=== PATIENT | female | born 1985 | race Caucasian/White ===

== ENCOUNTER 2021-05-09 11:00 | Emergency (ER) | payer OTHER ==
[~2021-05-09] VITALS: Ht 170.2 cm; Wt 54.4 kg
[2021-05-09] MEDS ORDERED: NULEV0.125 MG (11:08)
[2021-05-09] MEDS ORDERED: KETO10TA2 PO (16:06)
== END 2021-05-09 16:27 | disposition left against medical advice (07) ==
LOC: ER 11:00
DX: N83.291 Other ovarian cyst, right side (principal); R10.2 Pelvic and perineal pain

== ENCOUNTER 2021-05-15 11:56 | Emergency (ER) | payer OTHER ==
[~2021-05-15] VITALS: Ht 170.2 cm; Wt 54.4 kg
[~2021-05-15 11:56] MED LIST: KETO10TA2 PO; NULEV0.125 MG
== END 2021-05-15 17:56 | disposition home or self-care (01) ==
LOC: ER 11:56
DX: R10.9 Unspecified abdominal pain (principal); R10.2 Pelvic and perineal pain; N83.209 Unspecified ovarian cyst, unspecified side
CPT/HCPCS: 74177; Q9965

== ENCOUNTER 2021-05-22 13:05 | Emergency (ER) | payer OTHER ==
[~2021-05-22] VITALS: Ht 170.2 cm; Wt 54.4 kg
[2021-05-22] MEDS ORDERED: URIN D.S. TABL1 EACH PO (15:02)
[2021-05-22] MEDS ORDERED: PYRIDIUM DS200 MG PO (15:02)
[2021-05-22] MEDS ORDERED: SKELAGESIC PO (15:02)
[2021-05-22] MEDS ORDERED: UTIX PO (15:02)
== END 2021-05-22 15:44 ==
LOC: ER 13:05
DX: N30.10 Interstitial cystitis (chronic) without hematuria (principal)

== ENCOUNTER 2021-06-20 12:30 | Emergency (ER) | payer OTHER ==
[~2021-06-20] VITALS: Ht 170.2 cm; Wt 54.4 kg
[~2021-06-20 12:30] MED LIST changes: +PYRIDIUM DS200 MG PO; +SKELAGESIC PO; +URIN D.S. TABL1 EACH PO; +UTIX PO
== END 2021-06-20 14:25 | disposition home or self-care (01) ==
LOC: ER 12:30
DX: F31.9 Bipolar disorder, unspecified (principal); F32.9 Major depressive disorder, single episode, unspecified

== ENCOUNTER 2021-08-29 22:24 | Emergency (ER) | payer OTHER ==
[~2021-08-29] VITALS: Ht 170.2 cm; Wt 65.8 kg
[2021-08-30] MEDS ORDERED: ULTRACET PO (02:41)
== END 2021-08-30 03:00 | disposition home or self-care (01) ==
LOC: ER 22:24
DX: R10.2 Pelvic and perineal pain (principal); B37.3 Candidiasis of vulva and vagina; F41.9 Anxiety disorder, unspecified

== ENCOUNTER → 2021-10-07 | Emergency (ER) | payer OTHER ==
[~2021-10-07] VITALS: Ht 167.6 cm; Wt 51.3 kg
[~2021-10-07] MED LIST changes: +ULTRACET PO
== END | disposition left against medical advice (07) ==
LOC: ER 14:48
DX: Z53.20 Procedure and treatment not carried out because of patient's decision for unspecified reasons (principal)